=== PATIENT | male | born 1990 | race Caucasian/White ===

== ENCOUNTER 2018-07-08 02:58 | Emergency (ER) | payer SELFPAY ==
[2018-07-08] MEDS ORDERED: Proparacaine 0.5% Ophth Soln 15 ML Bottle EYEBOTH STA (03:05)
--- NOTE | 2018-07-08 03:34 | EDM.PDOC ---
ED HPI GENERAL MEDICAL PROBLEM - General Chief Complaint: Eye Problems Stated Complaint: ISSUE WITH BOTH EYES Time Seen by Provider: 07/08/18 03:07 - History of Present Illness INITIAL COMMENTS - FREE TEXT/NARRATIVE: HISTORY AND PHYSICAL: History of present illness: The patient is a healthy 27-year-old male who is up-to-date on his tetanus shot and does not wear glasses or contact lenses but presents with diffuse bilateral eye pain redness and irritation that started and woke him from sleep just prior to coming into the ED. The patient states that he has a new job welding and he was wearing safety glasses today but at the end of his work he was doing some cleanup and other people welding around him and he is concerning might of been exposed. The patient states that he went home and had a normal evening and had no complaints of eye pain and then right before going to bed he thought that his eyes were a little bit itchy and felt irritated but he did not notice any redness. He went to sleep and woke up suddenly with bilateral eye pain and discomfort and notices eyes were very red bilaterally. He has no systemic complaints and has no fevers chills nausea or vomiting and no headache. He noticed that his eyes are tearing but there has not been any cloudy drainage or crusting. He says both eyes are painful and he does not have a foreign body sensation and he doesn't feel like his vision is blurred is more just discomforting. He also says that light bothers his eyes Review of systems: As per history of present illness and below otherwise all systems reviewed and negative. Past medical history: As per history of present illness and as reviewed below otherwise noncontributory. Surgical history: As per history of present illness and as reviewed below otherwise noncontributory. Social history: No reported history of drug or alcohol abuse. Family history: As per history of present illness and as reviewed below otherwise noncontributory. Physical exam: General: Well-developed well-nourished man is nontoxic and vital signs are tacky. HEENT: Atraumatic, normocephalic, pupils reactive, EOMs are intact and there is no soft tissue swelling of the eyelids or periorbital areas, there is no cervical adenopathy or nuchal rigidity, the sclera are injected bilaterally but no specific delineated ciliary flush is appreciated, negative for conjunctival pallor or scleral icterus, mucous membranes moist, throat clear, neck supple, nontender, trachea midline. Please see below for fluoroscein exam Lungs: Clear to auscultation, breath sounds equal bilaterally, chest nontender. Heart: S1S2, regular rate and rhythm no overt murmurs Abdomen: Soft, nondistended, nontender. NABS Pelvis: Deferred Genitourinary: Deferred. Rectal: Deferred. Extremities: Atraumatic, negative for cords or calf pain. Neurovascular unremarkable. Neuro: Awake, alert, oriented. Cranial nerves II through XII unremarkable. Cerebellum unremarkable. Motor and sensory unremarkable throughout. Exam nonfocal. Diagnostics: Visual acuity was 20/25 in each eye as well as together Fluoroscein stain was performed after proparacaine instilled in bilateral eyes. No foreign bodies were appreciated under the lids or on standing exam. No discrete area of corneal abrasion or uptake was noted. There was a diffuse uptake pattern seen which is more prominent on the right eye. Fundi were difficult to see due to the patient's photophobia. Patient tolerated procedure well and fluoroscein was irrigated out Therapeutics: Proparacaine erythromycin ointment 0327: Case was discussed with Dr. Riley her field ironworker who is willing to see the patient tomorrow if he so having continued pain but thinks that if this was a Skimmer's injury will likely be healed by tomorrow. He advises giving the patient some antibiotic ointment for comfort measures and avoiding bright lights and using [id number] pain meds. I will give the patient Dr. 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 bilateral eye Pain Score (Numeric/FACES): 8 - Related Data Allergies Allergy/AdvReac Type Severity Reaction Status Date / Time No Known Allergies Allergy Verified 07/08/18 03:05 Home Meds: Home Meds . [No Known Home Meds] 07/08/18 [History] Past Medical History - Past Health History Medical/Surgical History: Denies Medical/Surgical History HEENT History: Reports: None Cardiovascular History: Reports: None Respiratory History: Reports: None Gastrointestinal History: Reports: None Genitourinary History: Reports: None Musculoskeletal History: Reports: None Neurological History: Reports: None Psychiatric History: Reports: None Endocrine/Metabolic History: Reports: None Hematologic History: Reports: None Dermatologic History: Reports: None - Infectious Disease History Infectious Disease History: Reports: None - Past Surgical History Cardiovascular Surgical History: Reports: None Respiratory Surgical History: Reports: None Male Surgical History: Reports: None Social & Family History - Family History Family Medical History: Noncontributory - Tobacco Use Smoking Status *Q: Current Every Day Smoker Years of Tobacco use: 5 Packs/Tins Daily: 1 - Recreational Drug Use Recreational Drug Use: No ED ROS GENERAL - Review of Systems Review Of Systems: ROS reveals no pertinent complaints other than HPI. ED EXAM GENERAL W FULL EYE - Physical Exam Exam: See Below (See dictation) Course - Vital Signs Last Recorded V/S: Last Vital Signs Temp 36.4 C 07/08/18 03:05 Pulse 85 07/08/18 03:05 Resp 18 07/08/18 03:05 BP 159/63 H 07/08/18 03:05 Pulse Ox 95 07/08/18 03:05 - Orders/Labs/Meds Orders: Active Orders 24 hr Category Date Time Status Communication Order [RC] STAT Care 07/08/18 03:08 Ordered Meds: Medications Discontinued Medications Generic Name Dose Route Start Last Admin Trade Name Freq PRN Reason Stop Dose Admin Proparacaine HCl 1 ml 07/08/18 03:05 07/08/18 03:11 Proparacaine 0.5% Ophth Soln EYEBOTH 07/08/18 03:06 2 drop NOW STA Administration Departure - Departure Time of Disposition: 03:35 Disposition: Home, Self-Care 01 Condition: Good Clinical Impression: Pain of both eyes, Welders' keratitis of both eyes - Discharge Information Additional Instructions: The following information is given to patients seen in the emergency department who are being discharged to home. This information is to outline your options for follow-up care. We provide all patients seen in our emergency department with a follow-up referral. The need for follow-up, as well as the timing and circumstances, are variable depending upon the specifics of your emergency department visit. If you don't have a primary care physician on staff, we will provide you with a referral. We always advise you to contact your personal physician following an emergency department visit to inform them of the circumstance of the visit and for follow-up with them and/or the need for any referrals to a consulting specialist. The emergency department will also refer you to a specialist when appropriate. This referral assures that you have the opportunity for followup care with a specialist. All of these measure are taken in an effort to provide you with optimal care, which includes your followup. Under all circumstances we always encourage you to contact your private physician who remains a resource for coordinating your care. When calling for followup care, please make the office aware that this follow-up is from your recent emergency room visit. If for any reason you are refused follow-up, please contact the [facility] emergency department at and ask to speak to the emergency department charge nurse. [facility] [address] [place] [address] Please use the ointment your given here in the ED every 4-6 hours as shown by nursing to bilateral eyes and do not drive a car until you are followed up. You may follow up with Dr. Riley or one of his associates at the clinic tomorrow and please call for follow-up appointment--the clinic is only open from 8-[address] Riley was made aware of you and tonight's events. He did feel that your eyes are improving a gelatinous really need to follow-up with Dr. Riley tomorrow and can do that at your leisure. Return to ER as needed and as discussed. - My Orders Last 24 Hours: My Active Orders 07/08/18 03:08 Communication Order [RC] STAT - Assessment/Plan Last 24 Hours: My Active Orders 07/08/18 03:08 Communication Order [RC] STAT
[2018-07-08] MEDS ORDERED: Erythromycin Base 0.5% Ophth Oint 1 GM Tube ONE (03:35)
[2018-07-08] MEDS ORDERED: Erythromycin Base 0.5% Ophth Oint 1 GM Tube EYEBOTH ONE (03:44)
== END 2018-07-08 03:50 | disposition home or self-care (01) ==
LOC: MW.ED 02:58
DX: H16.133 Photokeratitis, bilateral (principal); F17.210 Nicotine dependence, cigarettes, uncomplicated; W89.8XXA Exposure to other man-made visible and ultraviolet light, initial encounter; Y99.0 Civilian activity done for income or pay
CPT/HCPCS: 99283

== ENCOUNTER 2019-02-25 15:26 | Emergency (ER) | payer SELFPAY ==
[2019-02-25] MEDS ORDERED: Tetracaine 1% 10 MG/ML 2 ML SDV STA (15:45)
[2019-02-25] MEDS ORDERED: Tetracaine HCl/PF 0.5% 4 ML Bottle ONE (15:50)
[2019-02-25] MEDS ORDERED: Tetracaine HCl/PF 0.5% 4 ML Bottle EYELF ONE (15:51)
--- NOTE | 2019-02-25 16:24 | EDM.PDOC ---
ED HPI GENERAL MEDICAL PROBLEM - General Chief Complaint: Eye Problems Stated Complaint: EYE INJURY Time Seen by Provider: 02/25/19 15:43 Source of Information: Reports: Patient History Limitations: Reports: No Limitations - History of Present Illness INITIAL COMMENTS - FREE TEXT/NARRATIVE: HISTORY AND PHYSICAL: History of present illness: Patient is a 28-year-old male who presents to the ED today with concern for metal to his left eye. Patient states he was working with typing yesterday when he fell he kicked an eyelash in his eye. Patient states he's been able to see out of his eye that there is a piece of metal. Patient states he is up-to-date on his vaccinations and had a recent T Vaccine. Patient denies any blurry vision or loss of vision. Patient denies fever, chills, chest pain, shortness of breath, or cough. Denies headache, neck stiff ness, change in vision, syncope, or near syncope. Denies nausea, vomiting, abdominal pain, diarrhea, constipation, or dysuria. Has not noted any blood in urine or stool. Patient has been eating and drinking appropriately. Review of systems: As per history of present illness and below otherwise all systems reviewed and negative. Past medical history: As per history of present illness and as reviewed below otherwise noncontributory. Surgical history: As per history of present illness and as reviewed below otherwise noncontributory. Social history: See social history for further information Family history: As per history of present illness and as reviewed below otherwise noncontributory. Physical exam: General: Patient is alert, oriented, and in no acute distress. Patient sitting comfortably on exam table. HEENT: Atraumatic, normocephalic, pupils equal and reactive bilaterally, negative for conjunctival pallor or scleral icterus, mucous membranes moist, TMs normal bilaterally, throat clear, neck supple, nontender, trachea midline. No drooling or trismus noted. No meningeal signs. No hot potato voice noted. There is a pinpoint foreign body on the left cornea. Left eye is tearful with watery drainage and sclera is injected. I did fluorescein stain the eye and did appreciate a small corneal abrasion over top of the foreign body. I was unable to remove the foreign body due to the healing process. Lungs: Clear to auscultation, breath sounds equal bilaterally, chest nontender. Heart: S1S2, regular rate and rhythm without overt murmur Abdomen: Soft, nondistended, nontender. Negative for masses or hepatosplenomegaly. Negative for costovertebral tenderness. Pelvis: Stable nontender. Genitourinary: Deferred. Rectal: Deferred. Skin: Intact, warm, dry. No lesions or rashes noted. Extremities: Atraumatic, negative for cords or calf pain. Neurovascular unremarkable. Neuro: Awake, alert, oriented. Cranial nerves II through XII unremarkable. Cerebellum unremarkable. Motor and sensory unremarkable throughout. Exam nonfocal. Notes: Consult to Dr. Gallego, ophthalmology on-call, who is willing to see patient in his office immediately following the ED are discharge. Per consult, Dr. Fu will take care of any needed antibiotics or further care and disposition per patient. Discussed this with patient and he is agreeable to plan of care. Voices understanding and is agreeable to plan of care. Denies any further questions or concerns at this time. Diagnostics: First denies same Therapeutics: Tetracaine ophthalmic Prescription: None Impression: Foreign body to left eye with corneal abrasion Plan: 1. Discharge to Dr. Gallego, agency recruiter. Meet immediately following ER at door 2. 2. Return to ED as needed and as discussed. Definitive disposition and diagnosis as appropriate pending reevaluation and review of above. Left Eye Pain Score (Numeric/FACES): 1 - Related Data Allergies Allergy/AdvReac Type Severity Reaction Status Date / Time No Known Allergies Allergy Verified 02/25/19 15:40 Home Meds: Home Meds . [No Known Home Meds] 07/08/18 [History] Past Medical History - Past Health History Medical/Surgical History: Denies Medical/Surgical History HEENT History: Reports: None Cardiovascular History: Reports: None Respiratory History: Reports: None Gastrointestinal History: Reports: None Genitourinary History: Reports: None Musculoskeletal History: Reports: None Neurological History: Reports: None Psychiatric History: Reports: None Endocrine/Metabolic History: Reports: None Hematologic History: Reports: None Dermatologic History: Reports: None - Infectious Disease History Infectious Disease History: Reports: None - Past Surgical History Cardiovascular Surgical History: Reports: None Respiratory Surgical History: Reports: None Male Surgical History: Reports: None Social & Family History - Family History Family Medical History: Noncontributory - Tobacco Use Smoking Status *Q: Current Every Day Smoker Years of Tobacco use: 10 Packs/Tins Daily: 0.5 - Caffeine Use Caffeine Use: Reports: Coffee - Recreational Drug Use Recreational Drug Use: No ED ROS GENERAL - Review of Systems Review Of Systems: ROS reveals no pertinent complaints other than HPI. ED EXAM GENERAL W FULL EYE - Physical Exam Exam: See Below (See dictation) Course - Vital Signs Last Recorded V/S: Last Vital Signs Temp 35.6 C 02/25/19 15:40 Pulse 76 02/25/19 15:40 Resp 16 02/25/19 15:40 BP 139/81 02/25/19 15:40 Pulse Ox 97 02/25/19 15:40 - Orders/Labs/Meds Meds: Medications Discontinued Medications Generic Name Dose Route Start Last Admin Trade Name Osiel PRN Reason Stop Dose Admin Tetracaine 1 mg 02/25/19 15:45 Pontocaine 1% .XX 02/25/19 15:46 NOW STA Tetracaine HCl 1 ml 02/25/19 15:51 Tetracaine 0.5% Steri-Unit Yvonne EYELF 02/25/19 15:52 ASDIRECTED ONE Tetracaine HCl Confirm 02/25/19 15:50 Tetracaine 0.5% Steri-Unit Yvonne Administered 02/25/19 15:51 Dose 4 ml .ROUTE .STK-MED ONE Departure - Departure Time of Disposition: 16:28 Disposition: DC/Tfer to Other 70 Clinical Impression: Eye foreign body Qualifiers: Encounter type: initial encounter Laterality: left Qualified Code(s): T15.92XA - Foreign body on external eye, part unspecified, left eye, initial encounter Corneal abrasion Qualifiers: Encounter type: initial encounter Laterality: left Qualified Code(s): S05.02XA - Injury of conjunctiva and corneal abrasion without foreign body, left eye, initial encounter - Discharge Information Instructions: Corneal Abrasion, [id number], Eye Foreign Body, [id number] Referrals: PCP,Unknown [Primary Care Provider] - Additional Instructions: The following information is given to patients seen in the emergency department who are being discharged to home. This information is to outline your options for follow-up care. We provide all patients seen in our emergency department with a follow-up referral. The need for follow-up, as well as the timing and circumstances, are variable depending upon the specifics of your emergency department visit. If you don't have a primary care physician on staff, we will provide you with a referral. We always advise you to contact your personal physician following an emergency department visit to inform them of the circumstance of the visit and for follow-up with them and/or the need for any referrals to a consulting specialist. The emergency department will also refer you to a specialist when appropriate. This referral assures that you have the opportunity for follow-up care with a specialist. All of these measure are taken in an effort to provide you with optimal care, which includes your follow-up. Under all circumstances we always encourage you to contact your private physician who remains a resource for coordinating your care. When calling for follow-up care, please make the office aware that this follow-up is from your recent emergency room visit. If for any reason you are refused follow-up, please contact the [facility] Emergency Department at and asked to speak to the emergency department charge nurse. [facility] [address] [place] [id number] [place] [address] 1. [address]charge [address]. Gallego, agency recruiter. Meet immediately following ER at door 2. 2. Return to ED as needed and as discussed.
== END 2019-02-25 16:32 | disposition home or self-care (01) ==
LOC: MW.ED 15:26
DX: T15.02XA Foreign body in cornea, left eye, initial encounter (principal); F17.210 Nicotine dependence, cigarettes, uncomplicated
CPT/HCPCS: 99283

== ENCOUNTER 2020-06-30 22:12 | Emergency (ER) | payer SELFPAY ==
[2020-06-30] MEDS ORDERED: Ibuprofen 600 MG Tab PO ONE (22:30)
[2020-06-30] MEDS ORDERED: Sulfamethoxazole/Trimethoprim 800-160 MG Tab PO ONE (22:30)
--- NOTE | 2020-06-30 22:30 | EDM.PDOC ---
ED HPI GENERAL MEDICAL PROBLEM - General Chief Complaint: Genitourinary Problem Stated Complaint: POSSIBLE HERNIA Time Seen by Provider: 06/30/20 22:19 - History of Present Illness INITIAL COMMENTS - FREE TEXT/NARRATIVE: HISTORY AND PHYSICAL: History of present illness: This is a 29-year-old healthy gentleman with no history of hypertension, diabetes, liver, lung, kidney problems who presents the ER today secondary to pain and discomfort to his perineal region x3 weeks. Patient reports discomfort increased today. Patient was concerned that he might have a hernia in that region. Patient denies any recent fevers, shakes, chills, nausea, vomiting, diarrhea, dysuria, frequency, urgency, chest pain, shortness of breath. Review of systems: As per history of present illness and below otherwise all systems reviewed and negative. Past medical history: As per history of present illness and as reviewed below otherwise noncontributory. Surgical history: As per history of present illness and as reviewed below otherwise noncontributory. Social history: No reported history of drug or alcohol abuse. Family history: As per history of present illness and as reviewed below otherwise noncontributory. Physical exam: Constitutional: Patient is oriented to person, place, and time. Appears well- developed and well-nourished. No distress. HEENT: Moist mucous membranes Head: Normocephalic and atraumatic Eyes: Right eye exhibits no discharge. Left eye exhibits no discharge. No scleral icterus Neck: Normal range of motion. No tracheal deviation present. Cardiovascular: Normal rate and regular rhythm. Pulmonary: Effort normal, no respiratory distress. Abdominal: No distention Musculoskeletal: Normal range of motion Neurologic: Alert and oriented to person, place and time. Skin: [place], warm and dry. Psychiatric: Normal mood and affect. Behavior is normal. Judgment and thought content normal. Nursing note and vital signs have been reviewed Patient's ER physical exam is significant for tenderness and swelling to his perineal region with area of induration extending into his scrotal region. This appears to be the consistency of likely cellulitis. Patient has some mild erythema in that region as well. Testes are nontender. Therapeutics: Bactrim DS 2 tablets p.o. every 12 hours x10 days. Ibuprofen to assist with pain. Assessment and plan: 29-year-old who presents ER today with likely folliculitis/cellulitis in the perineal region. This does not appear to extend into the anus or rectum. Patient be started on Bactrim DS instructed to follow-up in 3 to 5 days for reevaluation. Patient will be instructed to utilize warm soaks/compresses to assist with healing. Reassessment at the time of disposition demonstrates that the patient is in no acute distress. The patient has remained stable throughout the entire ED visit and is without objective evidence for acute process requiring urgent intervention or hospitalization. The patient is stable for discharge, counseling is provided as documented above, discussed symptomatic treatment and specific conditions for return. I have spoken with the patient/caregive and discussed todays findings, in addition to providing specific details for the plan of care. Questions are answered and there is agreement with the plan. Definitive disposition and diagnosis as appropriate pending reevaluation and review of above. left testicular area Pain Score (Numeric/FACES): 5 - Related Data Allergies Allergy/AdvReac Type Severity Reaction Status Date / Time No Known Allergies Allergy Verified 06/30/20 22:22 Home Meds: Home Meds Ibuprofen 600 mg PO Q6HR PRN #30 tablet 06/30/20 [Rx] Sulfamethoxazole/Trimethoprim [Bactrim Ds Tablet] 2 each PO BID #40 tablet 06/30/20 [Rx] Past Medical History - Past Health History Medical/Surgical History: Denies Medical/Surgical History HEENT History: Reports: None Cardiovascular History: Reports: None Respiratory History: Reports: None Gastrointestinal History: Reports: None Genitourinary History: Reports: None Musculoskeletal History: Reports: None Neurological History: Reports: None Psychiatric History: Reports: None Endocrine/Metabolic History: Reports: None Hematologic History: Reports: None Dermatologic History: Reports: None - Infectious Disease History Infectious Disease History: Reports: None - Past Surgical History Cardiovascular Surgical History: Reports: None Respiratory Surgical History: Reports: None Male Surgical History: Reports: None Social & Family History - Family History Family Medical History: Noncontributory - Caffeine Use Caffeine Use: Reports: Coffee ED ROS GENERAL - Review of Systems Review Of Systems: Comprehensive ROS is negative, except as noted in HPI. ED EXAM, GENERAL - Physical Exam Exam: See Below Course - Vital Signs Last Recorded V/S: Last Vital Signs Temp 96.8 F L 06/30/20 22:52 Pulse 76 06/30/20 22:52 Resp 18 06/30/20 22:52 BP 130/70 06/30/20 22:52 Pulse Ox 98 06/30/20 22:52 - Orders/Labs/Meds Meds: Medications Discontinued Medications Generic Name Dose Route Start Last Admin Trade Name Freq PRN Reason Stop Dose Admin Ibuprofen 600 mg 06/30/20 22:30 06/30/20 22:43 Motrin PO 06/30/20 22:31 600 mg ONETIME ONE Administration Trimethoprim/Sulfamethoxazole 2 tab 06/30/20 22:30 06/30/20 22:43 Septra Ds PO 06/30/20 22:31 2 tab ONETIME ONE Administration Departure - Departure Time of Disposition: 22:43 Disposition: Home, Self-Care 01 Condition: Good Clinical Impression: Folliculitis, Cellulitis - Discharge Information Prescriptions: Sulfamethoxazole/Trimethoprim [Bactrim Ds Tablet] 2 each PO BID #40 tablet Ibuprofen 600 mg PO Q6HR PRN #30 tablet PRN Reason: Pain Instructions: Cellulitis, Adult Referrals: PCP,None [Primary Care Provider] - Forms: ED Department Discharge Additional Instructions: You will be first arrived Bactrim DS 2 tablets twice a day for 10 days. You will be prescribed ibuprofen to assist with pain. Please make an appointment to see your family doctor in 2 to 3 days for reevaluation. The following information is given to patients seen in the emergency department who are being discharged to home. This information is to outline your options for follow-up care. We provide all patients seen in our emergency department with a follow-up referral. The need for follow-up, as well as the timing and circumstances, are variable depending upon the specifics of your emergency department visit. If you don't have a primary care physician on staff, we will provide you with a referral. We always advise you to contact your personal physician following an emergency department visit to inform them of the circumstance of the visit and for follow-up with them and/or the need for any referrals to a consulting specialist. The emergency department will also refer you to a specialist when appropriate. This referral assures that you have the opportunity for follow-up care with a specialist. All of these measure are taken in an effort to provide you with optimal care, which includes your follow-up. Under all circumstances we always encourage you to contact your private physician who remains a resource for coordinating your care. When calling for follow-up care, please make the office aware that this follow-up is from your recent emergency room visit. If for any reason you are refused follow-up, please contact the [facility] Emergency Department at and asked to speak to the emergency department charge nurse. Sepsis Event Note (ED) - Evaluation Sepsis Screening Result: No Definite Risk
== END 2020-06-30 22:53 | disposition home or self-care (01) ==
LOC: MW.ED 22:12
DX: L73.9 Follicular disorder, unspecified (principal); L03.315 Cellulitis of perineum
CPT/HCPCS: 99283; A9270

== ENCOUNTER 2020-09-02 20:00 | Emergency (ER) | payer SELFPAY ==
--- NOTE | 2020-09-02 20:46 | EDM.PDOC ---
ED HPI GENERAL MEDICAL PROBLEM - General Chief Complaint: Skin Complaint Stated Complaint: LUMP ON TESTICLE Time Seen by Provider: 09/02/20 20:42 Source of Information: Reports: Patient - History of Present Illness INITIAL COMMENTS - FREE TEXT/NARRATIVE: Patient is a 30-year-old male who presents today for testicular pain. Patient states he had similar pain back in June was at home with a diagnosis of cellulitis on Bactrim. Patient states that today the pain and swelling redness has returned. Patient denies any penile discharge fevers chills abdominal pain. - Related Data Allergies Allergy/AdvReac Type Severity Reaction Status Date / Time No Known Allergies Allergy Verified 06/30/20 22:22 Home Meds: Home Meds Ibuprofen 600 mg PO Q6HR PRN #30 tablet 06/30/20 [Rx] Sulfamethoxazole/Trimethoprim [Bactrim Ds Tablet] 2 each PO BID #40 tablet 06/30/20 [Rx] Doxycycline Hyclate 100 mg PO BID 10 Days #20 tablet. 09/02/20 [Rx] Past Medical History - Past Health History Medical/Surgical History: Denies Medical/Surgical History HEENT History: Reports: None Cardiovascular History: Reports: None Other Cardiovascular History: irregular heartbeart as a child Respiratory History: Reports: None Gastrointestinal History: Reports: None Genitourinary History: Reports: None Musculoskeletal History: Reports: None Other Musculoskeletal History: L knee sx Neurological History: Reports: None Psychiatric History: Reports: None Endocrine/Metabolic History: Reports: None Insulin Pump Model and [employer]: None Hematologic History: Reports: None Immunologic History: Reports: None Oncologic (Cancer) History: Reports: None Dermatologic History: Reports: None - Infectious Disease History Infectious Disease History: Reports: None - Past Surgical History Head Surgeries/Procedures: Reports: None Cardiovascular Surgical History: Reports: None Respiratory Surgical History: Reports: None Male Surgical History: Reports: None Social & Family History - Family History Family Medical History: Noncontributory - Caffeine Use Caffeine Use: Reports: Coffee, Energy Drinks - Recreational Drug Use Recreational Drug Use: No ED ROS GENERAL - Review of Systems Review Of Systems: Comprehensive ROS is negative, except as noted in HPI. : Reports: Pain ED EXAM, SKIN/RASH Exam: See Below Exam Limited By: No Limitations General Appearance: Alert, No Apparent Distress Respiratory/Chest: No Respiratory Distress Cardiovascular: Normal Peripheral Pulses, Regular Rate, Rhythm GI/Abdominal: Normal Bowel Sounds, Soft, Non-Tender (Male) Exam: No Hernia, Scrotum Tenderness (L), Testicular Tenderness (R) Extremities: Normal Inspection Neurological: Alert, Oriented, CN II-XII Intact Psychiatric: Normal Affect Skin: Warm Course - Vital Signs Last Recorded V/S: Last Vital Signs Temp 98.4 F 09/02/20 20:17 Pulse 93 09/02/20 20:17 Resp 18 09/02/20 20:17 BP 143/85 H 09/02/20 20:17 Pulse Ox 96 09/02/20 20:17 - Orders/Labs/Meds Orders: Active Orders 24 hr Category Date Time Status Scrotum and Contents [US] Stat Exams 09/02/20 20:31 Taken Labs: Laboratory Tests 09/02/20 09/02/20 09/02/20 Range/Units 20:25 20:44 20:44 WBC 8.92 (4.0-11.0) K/uL RBC 5.13 (4.50-5.90) M/uL Hgb 15.6 (13.0-17.0) g/dL Hct 46.8 (38.0-50.0) % MCV 91.2 (80.0-98.0) fL MCH 30.4 (27.0-32.0) pg MCHC 33.3 (31.0-37.0) g/dL RDW Std Deviation 42.6 (28.0-62.0) fl RDW Coeff of Noe 13 (11.0-15.0) % Plt Count 326 (150-400) K/uL MPV 10.00 (7.40-12.00) fL Neut % (Auto) 55.8 (48.0-80.0) % Lymph % (Auto) 25.6 (16.0-40.0) % [place] % (Auto) 14.8 (0.0-15.0) % Eos % (Auto) 3.6 (0.0-7.0) % Baso % (Auto) 0.2 (0.0-1.5) % Neut # (Auto) 5.0 (1.4-5.7) K/uL Lymph # (Auto) 2.3 (0.6-2.4) K/uL [place] # (Auto) 1.3 H (0.0-0.8) K/uL Eos # (Auto) 0.3 (0.0-0.7) K/uL Baso # (Auto) 0.0 (0.0-0.1) K/uL Nucleated RBC % 0.0 /100WBC Nucleated RBCs # 0 K/uL Sodium 137 (136-148) mmol/L Potassium 3.9 (3.5-5.1) mmol/L Chloride 102 (98-107) mmol/L Carbon Dioxide 27.5 (21.0-32.0) mmol/L BUN 16 (7.0-18.0) mg/dL Creatinine 1.1 (0.8-1.3) mg/dL Est Cr Clr Drug Dosing 113.13 mL/min Estimated GFR (MDRD) > 60.0 ml/min Glucose 99 (74-106) mg/dL Calcium 9.3 (8.5-10.1) mg/dL Creatine Kinase 103 (26-308) U/L Urine Color YELLOW Urine Appearance HAZY Urine pH 5.0 (5.0-8.0) Ur Specific [place] >= 1.030 (1.001-1.035) Urine Protein 30 H (NEGATIVE) mg/dL Urine Glucose (UA) NEGATIVE (NEGATIVE) mg/dL Urine Ketones TRACE H (NEGATIVE) mg/dL Urine Occult Blood NEGATIVE (NEGATIVE) Urine Nitrite POSITIVE H (NEGATIVE) Urine Bilirubin MODERATE H (NEGATIVE) Urine Ictotest NEGATIVE Urine Urobilinogen 1.0 (<2.0) EU/dL Ur Leukocyte Esterase TRACE H (NEGATIVE) Urine RBC 4-8 (0-2/HPF) Urine WBC 0-2 (0-5/HPF) Ur Epithelial Cells RARE (NONE-FEW) Urine Bacteria FEW (NEGATIVE) Urine Mucus MODERATE (NONE-MOD) Meds: Medications Discontinued Medications Generic Name Dose Route Start Last Admin Trade Name Freq PRN Reason Stop Dose Admin Doxycycline Hyclate 100 mg 09/02/20 22:45 Vibramycin PO 09/02/20 22:46 ONETIME ONE Ceftriaxone Sodium 250 mg/ 1 mls @ 1 mls/sec 09/02/20 22:45 Lidocaine HCl IM 09/02/20 22:46 ONETIME ONE Departure - Departure Time of Disposition: 22:56 Disposition: Refer to Observation Clinical Impression: Acute epididymitis - Discharge Information *PRESCRIPTION DRUG MONITORING PROGRAM REVIEWED*: Not Applicable *COPY OF PRESCRIPTION DRUG MONITORING REPORT IN PATIENT STEVEN: Not Applicable Prescriptions: Doxycycline Hyclate 100 mg PO BID 10 Days #20 tablet. Instructions: Epididymitis Referrals: PCP,None [Primary Care Provider] - Forms: ED Department Discharge Additional Instructions: The following information is given to patients seen in the emergency department who are being discharged to home. This information is to outline your options for follow-up care. We provide all patients seen in our emergency department with a follow-up referral. The need for follow-up, as well as the timing and circumstances, are variable depending upon the specifics of your emergency department visit. If you don't have a primary care physician on staff, we will provide you with a referral. We always advise you to contact your personal physician following an emergency department visit to inform them of the circumstance of the visit and for follow-up with them and/or the need for any referrals to a consulting specialist. The emergency department will also refer you to a specialist when appropriate. This referral assures that you have the opportunity for follow-up care with a specialist. All of these measure are taken in an effort to provide you with optimal care, which includes your follow-up. Under all circumstances we always encourage you to contact your private physician who remains a resource for coordinating your care. When calling for follow-up care, please make the office aware that this follow-up is from your recent emergency room visit. If for any reason you are refused follow-up, please contact the [facility] Emergency Department at and asked to speak to the emergency department charge nurse. Take antibiotics as prescribed. If you have any increased testicular swelling redness fever chills please return otherwise follow-up with urology at the number below. [facility] - Urology [address] [place] [id number] Sepsis Event Note (ED) - Evaluation Sepsis Screening Result: No Definite Risk - Focused Exam Vital Signs: Vital Signs Temp Pulse Resp BP Pulse Ox 09/02/20 20:17 98.4 F 93 18 143/85 H 96 - My Orders Last 24 Hours: My Active Orders 09/02/20 20:31 Scrotum and Contents [US] Stat - Assessment/Plan Last 24 Hours: My Active Orders 09/02/20 20:31 Scrotum and Contents [US] Stat Plan: Patient is a male presents today for testicular pain and swelling. Patient has some tenderness to the left testicle with a possible abscess like mass. Will have labs ultrasound and reassess. Patient ultrasound shows possible epididymitis. Patient was given ceftriaxone with doxycycline. Patient will be discharged to follow-up with urology as outpatient. He also mentioned that his is and she has been tested for STDs and are negative. Patient will also be tested for gonorrhea and chlamydia.
[2020-09-02 21:12] LABS: BLOOD UREA NITROGEN,BUN 16 mg/dL (7.0-18.0); CARBON DIOXIDE,CO2 27.5 mmol/L (21.0-32.0); CHLORIDE,CL 102 mmol/L (98-107); GLUCOSE RANDOM 99 mg/dL (74-106); POTASSIUM,K 3.9 mmol/L (3.5-5.1); SODIUM,NA 137 mmol/L (136-148)
[2020-09-02] MEDS ORDERED: Doxycycline 100 MG Cap PO ONE (22:45)
[2020-09-02] MEDS ORDERED: cefTRIAXone 250 MG in Lidocaine 1% 1 ML IM ONE (22:45)
[2020-09-04 11:07] LABS: C.TRACHOMATIS BY TMA Negative (Negative); N.GONORRHOEAE BY TMA Negative (Negative)
--- NOTE | 2020-09-04 15:42 | US ---
INDICATION: Left scrotal pain for several months. TECHNIQUE: Ultrasound scrotum and contents. Real-time lucero scale sonographic images with spectral and color Doppler imaging of the testicles were obtained. COMPARISON: None FINDINGS: Right testis: 5 x 2.4 x 4.3 cm. The right testis is appearance and echotexture. Normal arterial and venous blood flow seen in the right testis. Left testis: 4.6 x 2.7 x 3.9 cm. The left testis is appearance and echotexture. Normal arterial and venous blood flow seen in the left testis. Epididymis: The left epididymis is mildly enlarged compared to the right but has no increased vascularity seen. Soft tissue: No significant hydrocele or varicocele noted. No adenopathy is seen. IMPRESSION: 1. The left epididymis is mildly enlarged compared to the right but has no increased vascularity seen. Findings may be due to epididymitis. Dictated by Glenn Jimenes MD @ 09/02/2020 10:27:57 PM Dictated by: Glenn Jimenes MD @ 09/02/2020 22:28:01 (Electronically Signed) DEO
== END 2020-09-02 23:30 | disposition home or self-care (01) ==
LOC: MW.ED 20:00
DX: N45.1 Epididymitis (principal)
CPT/HCPCS: 36415; 76870; 80048; 81001; 82550; 85025; 87491; 87591; 93976; 96372; 99284; A9270; J0696; J2001

== ENCOUNTER 2020-12-27 18:08 | Emergency (ER) | payer OTHER ==
--- NOTE | 2020-12-27 21:04 | US ---
INDICATION: Pain posterior to the scrotum TECHNIQUE: Ultrasound of the scrotum and contents. Sonographic lucero-scale images were obtained with spectral and color Doppler waveform and spectral waveform analysis of the testicles. COMPARISON: 09/02/2020 FINDINGS: Right testicle: 5.6 x 2.7 x 3.8 cm. Normal echotexture. No masses. No suspicious calcifications. Normal arterial and venous blood flow using Doppler and spectral waveform analysis. Left testicle: 5.6 x 2.4 x 4.0 cm. Normal echotexture. No masses. A few apparent faint microcalcifications versus artifact. Normal arterial and venous blood flow using Doppler and spectral waveform analysis. Epididymis: Unremarkable bilaterally. Unremarkable blood flow. Other: No significant hydrocele. A 3.4 x 1.2 x 1.1 cm complex ovoid hypoechoic structure in the perineal soft tissues posterior to the scrotum, containing irregular curvilinear and ill-defined internal echogenic areas, with mildly hypoechoic soft tissue periphery, demonstrating prominent peripheral doppler flow. No discernible Doppler flow within the complex hypoechoic central component. IMPRESSION: A 3.4 cm complex hypoechoic lesion in the posterior perineum, demonstrating prominent peripheral Doppler flow. This could represent an abscess, an infected hematoma or a necrotic mass. Correlate clinically and follow-up, as indicated. Bilateral testicular Doppler flow demonstrated. Few apparent left testicular microcalcifications. Consider follow-up. Dictated by Truong Gomez MD @ Dec 27 2020 8:49PM Signed by Dr. Truong Gomez @ Dec 27 2020 9:02PM
[2020-12-27 21:25] LABS: BLOOD UREA NITROGEN,BUN 18 mg/dL (7.0-18.0); CARBON DIOXIDE,CO2 22.1 mmol/L (21.0-32.0); CHLORIDE,CL 103 mmol/L (98-107); GLUCOSE RANDOM 99 mg/dL (74-106); SODIUM,NA 141 mmol/L (136-148)
[2020-12-27] MEDS ORDERED: Iopamidol 755 MG/ML 500 ML Multipack Bottle IVPUSH STA (21:58)
--- NOTE | 2020-12-27 22:15 | CT ---
INDICATION: Pain TECHNIQUE: CT pelvis with 100 cc Isovue 370 intravenous contrast. COMPARISON: Scrotal ultrasound 12/27/2020 FINDINGS: Bones: Alignment is normal. No sign of acute fracture. No suspicious bony lesions. Joints: Unremarkable. Soft tissues: Some nonspecific edema is present at the posterior aspect of the left hemiscrotum extending into the perineum. However, posterior to this there is a thin linear area of hypodense material with peripheral rim enhancement. This measures 4.2 centimeters anteroposterior, 0.6 centimeters transverse and 1.0 centimeters craniocaudal (series 203, image 85; series 201, image 97). Other: No dilated loops of large or small intestine within the pelvis. Unremarkable appendix. Bladder and prostate unremarkable. Subcentimeter inguinal lymph nodes. IMPRESSION: Edema at the posterior aspect of the left hemiscrotum with a thin hypodense rim enhancing collection at the posterior perineum near the skin surface measuring 4.2 x 0.6 x 1.0 centimeters suspicious for an abscess in this clinical setting. Please note that all CT scans at this facility use dose modulation, iterative reconstruction, and/or weight-based dosing when appropriate to reduce radiation dose to as low as reasonably achievable. Dictated by Ezio Flores MD @ Dec 27 2020 10:06PM Signed by Dr. Ezio Flores @ Dec 27 2020 10:13PM
[2020-12-27] MEDS ORDERED: Lidocaine 5% Oint 35.44 GM Tube TOP ONE ×3 (22:47→23:00)
[2020-12-28] MEDS ORDERED: Lidocaine 1% with EPINEPHrine 1:100,000 20 ML MDV ONE (00:11)
[2020-12-28] MEDS ORDERED: Lidocaine 1% with EPINEPHrine 1:100,000 20 ML MDV INJECT ONE (00:15)
[2020-12-28] MEDS ORDERED: Ketorolac 15 MG/ML SDV IM ONE (00:26)
[2020-12-28] MEDS ORDERED: Sulfamethoxazole/Trimethoprim 800-160 MG Tab PO ONE (00:27)
--- NOTE | 2020-12-28 00:46 | EDM.PDOC ---
ED HPI GENERAL MEDICAL PROBLEM - General Stated Complaint: GROIN PAIN Time Seen by Provider: 12/27/20 19:20 - History of Present Illness INITIAL COMMENTS - FREE TEXT/NARRATIVE: CHIEF COMPLAINT(S): Bubble and swelling near testicles HISTORY OF PRESENT ILLNESS: This is a 30-year-old man without any significant past medical history who comes to the emergency department with a chief complaint of bubble and swelling near testicles. The patient states that he has been to the emergency department multiple times in his primary care physician for continued pain on the left side of his testicles. He states that it has not gotten any better and was recently started on a new antibiotic. He states that he is concerned because there is a bubble and there is an area of swelling that seems to shift around. He states it is now located on his taint and it is pretty severe and tender. He denies any fevers, chills, pain with defecation, dysuria, hematuria, penile discharge. He states that he does have some mild left testicular pain but denies any testicular swelling. He states that he has tried the antibiotics and was told to follow-up with urology today however urology can only see him in 2 months. He denies any other symptoms. He denies any history of STDs. Denies any history of prostatitis. He is sexually active with one partner who is his who is present in the room with him. REVIEW OF SYSTEMS: Constitutional: Denies fever, chills. Eyes: Denies eye pain Ears, Nose, Mouth, & Throat: Denies earache Cardiovascular: Denies chest pain Respiratory: Denies shortness of breath Gastrointestinal: Denies Nausea, vomiting, diarrhea, hematochezia. Genitourinary: Positive for left testicular pain. Denies hematuria, dysuria, penile discharge, testicular swelling Skin: Positive for a tender swollen area near the scrotum. MSK: Denies joint pain Neurological: Denies blurred vision Psychiatric: Denies depression PAST MEDICAL HISTORY: As per history of present illness and as reviewed below otherwise noncontributory. SURGICAL HISTORY: As per history of present illness and as reviewed below otherwise noncontributory. SOCIAL HISTORY: As per history of present illness and as reviewed below otherwise noncontributory. FAMILY HISTORY: As per history of present illness and as reviewed below otherwise noncontributory. EXAMINATION OF ORGAN SYSTEMS/BODY AREAS: Constitutional: Blood pressure is 127/80, heart rate 100, respiratory rate 20 with an oxygen saturation 96% on room air. Temperature 36.9 General: Overall well-appearing man who is in no acute distress. Psychiatric: Appropriate mood and affect. Eyes: No scleral icterus or conjunctival erythema ENMT: Moist mucous membranes. No pharyngeal erythema Cardiovascular: Regular, rate, and rhythm. No gallops, murmurs, or rubs. Bilateral upper extremity pulses symmetric and intact. No peripheral edema. No JVD. Respiratory: Lungs clear to auscultation bilaterally. No wheezes, rales, or rhonchi. Gastrointestinal: Soft, non-tender, non-distended. Normoactive bowel sounds rectal examination was performed. There was no prostate tenderness. There was no masses or lumps. Genitourinary: No suprapubic tenderness the patient has normal male external genitalia. Bilateral testes are distended. There is no obvious swelling or redness to the testicles. There is some mild tenderness on the scrotum of the left side near the base of the scrotum. There is positive cremasteric reflex. There is no evidence of inguinal hernia. No penile discharge noted. Musculoskeletal: Normal range of motion. Skin: There is some area on the perineum which extends near the scrotum which is tender, mildly erythematous with some fluctuance and induration. This does not extend near the rectum. There is no inguinal lymphadenopathy. Neurological: Alert, GCS 15 MEDICAL DECISION MAKING AND COURSE IN THE ED WITH INTERPRETATION/REVIEW OF DIAGNOSTIC STUDIES: This is a 30-year-old man without any reported past medical history who comes to the emergency department with continued tenderness on the left scrotum with a normal male external genitalia examination who has evidence of possible perineal abscess with mild overlying cellulitis. The patient states that when we are not touching it there is no pain therefore he does not want any pain medications at this time. Given the tenderness on the testicles we will obtain a repeat ultrasound. Will obtain labs including CBC, BMP, and urinalysis. I did review the patient's chart and he was seen on 06/30/2020 and was diagnosed with possible scrotal cellulitis and was discharged with Bactrim at that time. He was again seen in August 2020 with testicular pain. At that time a scrotal ultrasound was performed which did reveal left epididymitis. In addition at that time the patient had a urinalysis showing positive nitrites, leukocyte esterase with bacteria. Gonorrhea and Chlamydia were negative at that time. The patient was given STD treatment and discharged with epididymitis. Given the prior results and the urinalysis it is uncommon for a male to have E. coli cystitis and urethritis. I did discuss this with the patient. With present in room they did admit to anal intercourse. I do believe this is the cause of the patient's prior urinary tract infection. The radiological images were viewed by myself along with reading the report from the radiologist. Scrotal ultrasound does not reveal any decreased Doppler flow to suggest testicular torsion. There is no evidence of epididymitis or orchitis. There was a 3.4 cm complex hypoechoic lesion in the posterior perineum which could represent an abscess, infected hematoma or necrotic mass. After ultrasound I did discuss with patient at this time that there is possibly an abscess however I wanted to obtain a CT pelvis to evaluate the extent of this abscess. I discussed that this may need drainage by general surgery or urology. He was amenable to this plan. The radiological images were viewed by myself along with reading the report from the radiologist. Pelvic CT reveals edema at the posterior aspect of the left hemiscrotum with a thin hypodense rim-enhancing collection at the posterior perineum near the skin surface measuring 4.2 x 0.6 x 1 cm suspicious for abscess. After imaging I did contact Dr. Negron. He did recommend incision and drainage and follow-up in his clinic. I did discuss results with the patient and he was amenable to incision and drainage at this time. We did place 5% lidocaine cream for anesthetic relief prior to incision and drainage and additional injectable lidocaine. Incision and drainage was performed by myself. The perineum area was prepped with povidone and the skin was locally anesthetized with 1% lidocaine with epinephrine. An incision was made with an 11 blade. Purulent material was removed. A dressing was placed. After incision and drainage I did discuss with the patient that I would like to put him with Toradol given that it would likely be painful after the lidocaine wears off. I discussed at this time that he should keep the area clean and use pads for the drainage. I discussed that I be providing him with Bactrim to be used twice a day for the next week. I discussed with him that he should do sitz bath twice a day and follow-up with general surgery within 1 week. I discussed strict return precautions. The patient was amenable to discharge at this time and had no further questions DISPOSITION: The patient was discharged home in stable condition. The patient will follow up with follow-up with general surgery within 1 week CONDITION: Fair PROCEDURES: Incision and drainage FINAL IMPRESSION(S)/DIAGNOSES: 1. Acute perineal abscess status post incision and drainage Nabil Santillan M.D. testicles Pain Score (Numeric/FACES): 7 - Related Data Allergies Allergy/AdvReac Type Severity Reaction Status Date / Time No Known Allergies Allergy Verified 12/27/20 19:18 Home Meds: Home Meds Ibuprofen 600 mg PO Q6HR PRN #30 tablet 06/30/20 [Rx] Levofloxacin 500 mg PO DAILY 12/27/20 [History] Sulfamethoxazole/Trimethoprim [Bactrim Ds Tablet] 1 each PO BID #14 tablet 12/28/20 [Rx] Past Medical History - Past Health History Medical/Surgical History: Denies Medical/Surgical History HEENT History: Reports: None Cardiovascular History: Reports: None Other Cardiovascular History: irregular heartbeart as a child Respiratory History: Reports: None Gastrointestinal History: Reports: None Genitourinary History: Reports: None Musculoskeletal History: Reports: None Other Musculoskeletal History: L knee sx Neurological History: Reports: None Psychiatric History: Reports: None Endocrine/Metabolic History: Reports: None Insulin Pump Model and Information Technology Advisor: None Hematologic History: Reports: None Immunologic History: Reports: None Oncologic (Cancer) History: Reports: None Dermatologic History: Reports: None - Infectious Disease History Infectious Disease History: Reports: None - Past Surgical History Head Surgeries/Procedures: Reports: None Cardiovascular Surgical History: Reports: None Respiratory Surgical History: Reports: None Male Surgical History: Reports: None Musculoskeletal Surgical History: Reports: Other (See Below) Other Musculoskeletal Surgeries/Procedures:: Knee surgery Social & Family History - Family History Family Medical History: No Pertinent Family History - Tobacco Use Tobacco Use Status *Q: Current Every Day Tobacco User Years of Tobacco use: 10 Packs/Tins Daily: 1 - Caffeine Use Caffeine Use: Reports: Coffee, Energy Drinks, Soda - Recreational Drug Use Recreational Drug Use: No ED ROS GENERAL - Review of Systems Review Of Systems: See Below ED EXAM, SKIN/RASH Exam: See Below Course - Vital Signs Last Recorded V/S: Last Vital Signs Temp 36.9 C 12/27/20 19:19 Pulse 74 12/28/20 01:08 Resp 18 12/28/20 01:08 BP 115/59 L 12/28/20 01:08 Pulse Ox 95 12/28/20 01:08 - Orders/Labs/Meds Orders: Active Orders 24 hr Category Date Time Status Scrotal Duplex Ltd [US] Routine Exams 12/27/20 19:45 Taken CULTURE WOUND [RM] Stat Lab 12/28/20 00:40 Received Labs: Laboratory Tests 12/27/20 12/27/20 12/27/20 Range/Units 19:27 21:00 21:00 WBC 14.80 H (4.0-11.0) K/uL RBC 4.99 (4.50-5.90) M/uL Hgb 15.4 (13.0-17.0) g/dL Hct 45.1 (38.0-50.0) % MCV 90.4 (80.0-98.0) fL MCH 30.9 (27.0-32.0) pg MCHC 34.1 (31.0-37.0) g/dL RDW Std Deviation 42.8 (28.0-62.0) fl RDW Coeff of Noe 13 (11.0-15.0) % Plt Count 363 (150-400) K/uL MPV 9.90 (7.40-12.00) fL Neut % (Auto) 63.9 (48.0-80.0) % Lymph % (Auto) 20.4 (16.0-40.0) % [place] % (Auto) 10.3 (0.0-15.0) % Eos % (Auto) 5.1 (0.0-7.0) % Baso % (Auto) 0.3 (0.0-1.5) % Neut # (Auto) 9.5 H (1.4-5.7) K/uL Lymph # (Auto) 3.0 H (0.6-2.4) K/uL [place] # (Auto) 1.5 H (0.0-0.8) K/uL Eos # (Auto) 0.8 H (0.0-0.7) K/uL Baso # (Auto) 0.1 (0.0-0.1) K/uL Nucleated RBC % 0.0 /100WBC Nucleated RBCs # 0 K/uL Sodium 141 (136-148) mmol/L Potassium 4.0 (3.5-5.1) mmol/L Chloride 103 (98-107) mmol/L Carbon Dioxide 22.1 (21.0-32.0) mmol/L BUN 18 (7.0-18.0) mg/dL Creatinine 0.9 (0.8-1.3) mg/dL Est Cr Clr Drug Dosing 138.27 mL/min Estimated GFR (MDRD) > 60.0 ml/min Glucose 99 (74-106) mg/dL Calcium 8.9 (8.5-10.1) mg/dL Urine Color YELLOW Urine Appearance SLT CLOUDY Urine pH 5.5 (5.0-8.0) Ur Specific [place] >= 1.030 (1.001-1.035) Urine Protein NEGATIVE (NEGATIVE) mg/dL Urine Glucose (UA) NEGATIVE (NEGATIVE) mg/dL Urine Ketones TRACE H (NEGATIVE) mg/dL Urine Occult Blood NEGATIVE (NEGATIVE) Urine Nitrite NEGATIVE (NEGATIVE) Urine Bilirubin SMALL H (NEGATIVE) Urine Ictotest NEGATIVE Urine Urobilinogen 1.0 (<2.0) EU/dL Ur Leukocyte Esterase NEGATIVE (NEGATIVE) Meds: Medications Discontinued Medications Generic Name Dose Route Start Last Admin Trade Name Freq PRN Reason Stop Dose Admin Iopamidol 100 ml 12/27/20 21:58 12/27/20 21:59 Isovue Multipack-370 (76%) IVPUSH 12/27/20 21:59 100 ml ONETIME STA Administration Ketorolac Tromethamine 15 mg 12/28/20 00:26 12/28/20 00:59 Toradol IM 12/28/20 00:57 Not Given ONETIME ONE Ketorolac Tromethamine 15 mg 12/28/20 00:57 12/28/20 01:00 Toradol IVPUSH 12/28/20 00:58 15 mg ONETIME ONE Administration Lidocaine HCl 1 gm 12/27/20 22:47 12/27/20 23:01 Lidocaine 5% TOP 12/27/20 22:48 1 gm ONETIME ONE Administration Lidocaine HCl 35 gm 12/27/20 23:00 12/27/20 23:02 Lidocaine 5% TOP 12/27/20 23:01 Not Given ONETIME ONE Lidocaine HCl 1 gm 12/27/20 23:00 12/27/20 23:02 Lidocaine 5% TOP 12/27/20 23:01 Not Given ONETIME ONE Lidocaine/Epinephrine Confirm 12/28/20 00:11 12/28/20 00:15 Xylocaine 1% With Epinephrine 1:100,000 Administered 12/28/20 00:12 Not Given Dose 20 ml .ROUTE .STK-MED ONE Lidocaine/Epinephrine 20 ml 12/28/20 00:15 12/28/20 01:07 Xylocaine 1% With Epinephrine 1:100,000 INJECT 12/28/20 00:16 20 ml ONETIME ONE Administration Trimethoprim/Sulfamethoxazole 1 tab 12/28/20 00:27 12/28/20 00:58 Septra Ds PO 12/28/20 00:28 1 tab ONETIME ONE Administration Departure - Departure Time of Disposition: 00:45 Disposition: Home, Self-Care 01 Condition: Fair Clinical Impression: Perineal abscess - Discharge Information *PRESCRIPTION DRUG MONITORING PROGRAM REVIEWED*: No *COPY OF PRESCRIPTION DRUG MONITORING REPORT IN PATIENT STEVEN: No Prescriptions: Sulfamethoxazole/Trimethoprim [Bactrim Ds Tablet] 1 each PO BID #14 tablet Instructions: Skin Abscess, [id number], Pain Medicine Instructions, [id number] Referrals: Eugene Berg PA [Primary Care Provider] - Forms: ED Department Discharge Additional Instructions: Your evaluated today on an emergent basis. At this time we did open up the abscess near your testicles. I do recommend that you use Bactrim twice a day for the next 7 days. It is important to take sitz bath's something 2-3 times a day. Please use Tylenol and Motrin as outlined below. If you have any worsening pain, redness that extends beyond where it was before, fevers, pain while having a bowel movement please return to the emergency department. Otherwise please follow-up with general surgery within 1 week for continued evaluation. Please use: Tylenol 500-1000mg every 6 hours (DO NOT TAKE MORE THAN 4000mg in 1 day) Ibuprofen 400mg every 6 hours (Take with food as it can cause ulcers, GI upset) Example schedule: 8:00 AM (Tylenol 500-1000mg) 11:00 AM (Ibuprofen 400mg) 2:00 PM (Tylenol 500-1000mg) 5:00 PM (Ibuprofen 400mg) [facility] - General Surgery Professional [address], [address] [place] [address] The patient is informed of any results of their evaluation and diagnostic workup and all questions are answered. They are given discharge instructions and return precautions. The patient is stable for discharge. The patient states they understand and agree with the plan and that they will return if their symptoms get worse or if they have any new concerns. The following information is given to patients seen in the emergency department who are being discharged to home. This information is to outline your options for follow-up care. We provide all patients seen in our emergency department with a follow-up referral. The need for follow-up, as well as the timing and circumstances, are variable depending upon the specifics of your emergency department visit. If you don't have a primary care physician on staff, we will provide you with a referral. We always advise you to contact your personal physician following an emergency department visit to inform them of the circumstance of the visit and for follow-up with them and/or the need for any referrals to a consulting specialist. The emergency department will also refer you to a specialist when appropriate. This referral assures that you have the opportunity for follow-up care with a specialist. All of these measure are taken in an effort to provide you with optimal care, which includes your follow-up. Under all circumstances we always encourage you to contact your private physician who remains a resource for coordinating your care. When calling for follow-up care, please make the office aware that this follow-up is from your recent emergency room visit. If for any reason you are refused follow-up, please contact the [facility] Emergency Department at and asked to speak to the emergency department charge nurse. Sepsis Event Note (ED) - Evaluation Sepsis Screening Result: No Definite Risk - Focused Exam Vital Signs: Vital Signs Temp Pulse Resp BP Pulse Ox 12/28/20 01:08 74 18 115/59 L 95 12/27/20 21:35 75 16 107/51 L 98 12/27/20 19:19 36.9 C 100 20 127/80 96 - My Orders Last 24 Hours: My Active Orders 12/27/20 19:45 Scrotal Duplex Ltd [US] Routine 12/28/20 00:40 CULTURE WOUND [RM] Stat - Assessment/Plan Last 24 Hours: My Active Orders 12/27/20 19:45 Scrotal Duplex Ltd [US] Routine 12/28/20 00:40 CULTURE WOUND [RM] Stat
[2020-12-28] MEDS ORDERED: Ketorolac 30 MG/ML SDV IVPUSH ONE (00:57)
--- NOTE | 2020-12-30 10:50 | US ---
EXAM DATE: 12/27/20 PATIENT'S AGE: 30 Patient: MATTEO ESCOTO Facility: [facility] Site . Site : 1990 Study: US-Testicle -12/27/2020 8:28:40 PM Ordering Physician: Cindy Carranza Final Report: INDICATION: Pain posterior to the scrotum TECHNIQUE: Ultrasound of the scrotum and contents. Sonographic lucero-scale images were obtained with spectral and color Doppler waveform and spectral waveform analysis of the testicles. COMPARISON: 09/02/2020 FINDINGS: Right testicle: 5.6 x 2.7 x 3.8 cm. Normal echotexture. No masses. No suspicious calcifications. Normal arterial and venous blood flow using Doppler and spectral waveform analysis. Left testicle: 5.6 x 2.4 x 4.0 cm. Normal echotexture. No masses. A few apparent faint microcalcifications versus artifact. Normal arterial and venous blood flow using Doppler and spectral waveform analysis. Epididymis: Unremarkable bilaterally. Unremarkable blood flow. Other: No significant hydrocele. A 3.4 x 1.2 x 1.1 cm complex ovoid hypoechoic structure in the perineal soft tissues posterior to the scrotum, containing irregular curvilinear and ill-defined internal echogenic areas, with mildly hypoechoic soft tissue periphery, demonstrating prominent peripheral doppler flow. No discernible Doppler flow within the complex hypoechoic central component. IMPRESSION: A 3.4 cm complex hypoechoic lesion in the posterior perineum, demonstrating prominent peripheral Doppler flow. This could represent an abscess, an infected hematoma or a necrotic mass. Correlate clinically and follow-up, as indicated. Bilateral testicular Doppler flow demonstrated. Few apparent left testicular microcalcifications. Consider follow-up. Dictated by Truong Gomez MD @ Dec 27 2020 8:49PM Signed by: Truong Gomez MD @12/27/2020 9:02:53 PM (Electronic Signature) Report Signed by Proxy. [employer]
== END 2020-12-28 01:09 | disposition home or self-care (01) ==
LOC: MW.ED 18:08
DX: L02.215 Cutaneous abscess of perineum (principal); Z72.0 Tobacco use
CPT/HCPCS: 36415; 56405; 72193; 76870; 80048; 81003; 85025; 87070; 93976; 96374; 99284; A9270; J1885; Q9967; 10060; 99283

== ENCOUNTER 2021-01-03 21:31 | Emergency (ER) | payer SELFPAY ==
--- NOTE | 2021-01-03 21:35 | EDM.PDOC ---
ED HPI GENERAL MEDICAL PROBLEM - General Chief Complaint: Lower Extremity Injury/Pain Stated Complaint: RT ANKLE INJURY Time Seen by Provider: 01/03/21 21:32 Source of Information: Reports: Patient History Limitations: Reports: No Limitations - History of Present Illness INITIAL COMMENTS - FREE TEXT/NARRATIVE: 30-year-old male presents for right ankle injury. Patient was at work when he tripped rolling his right ankle. He has since noted pain and swelling in the affected extremity. Denies any other injuries. He notes that he was initially able to walk on the affected extremity but has had pain all day. He is noted that swelling has worsened throughout the day. This evening the swelling and pain have become to the point that he cannot really walk on it. He denies any other injuries. Denies hitting his head or LOC R ankle Pain Score (Numeric/FACES): 2 - Related Data Allergies Allergy/AdvReac Type Severity Reaction Status Date / Time No Known Allergies Allergy Verified 12/27/20 19:18 Home Meds: Home Meds Sulfamethoxazole/Trimethoprim [Bactrim Ds Tablet] 01/03/21 [History] levoFLOXacin [Levaquin] 01/03/21 [History] Past Medical History - Past Health History Medical/Surgical History: Denies Medical/Surgical History HEENT History: Reports: None Cardiovascular History: Reports: None Other Cardiovascular History: irregular heartbeart as a child Respiratory History: Reports: None Gastrointestinal History: Reports: None Genitourinary History: Reports: None Musculoskeletal History: Reports: None Other Musculoskeletal History: L knee sx Neurological History: Reports: None Psychiatric History: Reports: None Endocrine/Metabolic History: Reports: None Insulin Pump Model and Rope Tow Operator: None Hematologic History: Reports: None Immunologic History: Reports: None Oncologic (Cancer) History: Reports: None Dermatologic History: Reports: None - Infectious Disease History Infectious Disease History: Reports: None - Past Surgical History Head Surgeries/Procedures: Reports: None Cardiovascular Surgical History: Reports: None Respiratory Surgical History: Reports: None Male Surgical History: Reports: None Musculoskeletal Surgical History: Reports: Other (See Below) Other Musculoskeletal Surgeries/Procedures:: Knee surgery Social & Family History - Family History Family Medical History: No Pertinent Family History - Caffeine Use Caffeine Use: Reports: Coffee, Energy Drinks, Soda Review of Systems - Review of Systems Review Of Systems: Comprehensive ROS is negative, except as noted in HPI. ED EXAM, GENERAL - Physical Exam Exam: See Below Exam Limited By: No Limitations General Appearance: Alert, WD/WN, No Apparent Distress Throat/Mouth: Normal Voice, No Airway Compromise Head: Atraumatic, Normocephalic Neck: Normal Inspection Respiratory/Chest: No Respiratory Distress, No Accessory Muscle Use Cardiovascular: Other (normal R dorsalis pedis pulse) Extremities: Other (swelling and TTP of R lateral malleolus, +TTP of anterior t ibia LLE) Neurological: Alert Psychiatric: Normal Affect, Normal Mood Skin Exam: Warm, Dry, Intact, Normal Color Course - Vital Signs Last Recorded V/S: Last Vital Signs Temp 98.5 F 01/03/21 21:39 Pulse 75 01/03/21 21:39 Resp 18 01/03/21 21:39 BP 127/75 01/03/21 21:39 Pulse Ox 98 01/03/21 21:39 - Orders/Labs/Meds Orders: Active Orders 24 hr Category Date Time Status Todd Bandage [RC] ONETIME Care 01/03/21 22:54 Ordered Meds: Medications Discontinued Medications Generic Name Dose Route Start Last Admin Trade Name Osiel PRN Reason Stop Dose Admin Ibuprofen 600 mg 01/03/21 21:39 01/03/21 21:51 Ibuprofen 600 Mg Tab PO 01/03/21 21:40 Not Given ONETIME ONE Oxycodone/Acetaminophen 1 tab 01/03/21 21:39 01/03/21 21:50 Acetaminophen/Oxycodone 325-5 Mg Tab PO 01/03/21 21:40 1 tab ONETIME ONE Administration - Re-Assessments/Exams Free Text/Narrative Re-Assessment/Exam: 01/03/21 21:41 We will get x-ray imaging of the affected ankle. Will give Percocet and Motrin for pain. We will follow up x-ray and disposition accordingly. 01/03/21 22:54 X-ray reveals moderate joint effusion without evidence of osseous injury. Will Todd wrap the affected extremity. Will give patient follow-up with orthopedics if symptoms do not resolve in the next several days for further work-up and assessment. Departure - Departure Time of Disposition: 22:55 Disposition: Home, Self-Care 01 Condition: Good Clinical Impression: Ankle sprain Qualifiers: Encounter type: initial encounter Involved ligament of ankle: unspecified ligament Laterality: right Qualified Code(s): S93.401A - Sprain of unspecified ligament of right ankle, initial encounter - Discharge Information Instructions: Ankle Sprain Referrals: PCP,None [Primary Care Provider] - Forms: ED Department Discharge Additional Instructions: Your x-ray does not reveal evidence of a fracture or dislocation. It appears that you have a bad ankle sprain. We have placed this in an Todd bandage that can help with stability of the ankle over the next several days. If your pain is not improving I would recommend that you follow-up with an orthopedic physician for further work-up. X-ray imaging can miss tears of ligaments in the ankle and these are sometimes (rarely) managed surgically. [facility][Note 3] [facility] [address] [place] [address], [address] [place] [address] The following information is given to patients seen in the emergency department who are being discharged to home. This information is to outline your options for follow-up care. We provide all patients seen in our emergency department with a follow-up referral. The need for follow-up, as well as the timing and circumstances, are variable depending upon the specifics of your emergency department visit. If you don't have a primary care physician on staff, we will provide you with a referral. We always advise you to contact your personal physician following an emergency department visit to inform them of the circumstance of the visit and for follow-up with them and/or the need for any referrals to a consulting specialist. The emergency department will also refer you to a specialist when appropriate. This referral assures that you have the opportunity for follow-up care with a specialist. All of these measure are taken in an effort to provide you with optimal care, which includes your follow-up. Under all circumstances we always encourage you to contact your private physician who remains a resource for coordinating your care. When calling for follow-up care, please make the office aware that this follow-up is from your recent emergency room visit. If for any reason you are refused follow-up, please contact the [facility] Emergency Department at and asked to speak to the emergency department charge nurse. Please follow up with your primary care physician. If you do not have a primary care physician, see below: [facility] [address] [place] [address] [id number] [facility] [address] [place], [place] [id number] [facility] [address] [place] [id number] Sepsis Event Note (ED) - Focused Exam Vital Signs: Vital Signs Temp Pulse Resp BP Pulse Ox 01/03/21 21:39 98.5 F 75 18 127/75 98 - My Orders Last 24 Hours: My Active Orders 01/03/21 22:54 Todd Bandage [RC] ONETIME - Assessment/Plan Last 24 Hours: My Active Orders 01/03/21 22:54 Todd Bandage [RC] ONETIME
[2021-01-03] MEDS ORDERED: Ibuprofen 600 MG Tab PO ONE (21:39)
[2021-01-03] MEDS ORDERED: Acetaminophen/oxyCODONE 325-5 MG Tab PO ONE (21:39)
--- NOTE | 2021-01-03 22:22 | CR ---
HISTORY: Rolled ankle with pain and swelling. COMPARISON: None available. FINDINGS: AP, lateral and oblique views of the right ankle were obtained for a total of three views. There is no sign of fracture or dislocation. The ankle mortise is intact. The talar dome is intact. There is a moderate diffuse joint effusion. There is moderate lateral soft tissue swelling and mild anterior swelling. There is no sign of soft tissue gas or foreign body. No degenerative disease is seen. IMPRESSION: No sign of acute osseous injury. Moderate lateral soft tissue swelling with moderate joint effusion. Dictated by Jose J Cedillo MD @ Jan 03 2021 10:18PM Signed by Dr. Jose J Cedillo @ Jan 03 2021 10:20PM
== END 2021-01-03 23:16 | disposition home or self-care (01) ==
LOC: MW.ED 21:31
DX: S93.401A Sprain of unspecified ligament of right ankle, initial encounter (principal); X50.9XXA Other and unspecified overexertion or strenuous movements or postures, initial encounter; Y99.0 Civilian activity done for income or pay
CPT/HCPCS: 73610; 99283; A9270; 99282

== ENCOUNTER 2022-03-13 01:33 | Emergency (ER) | payer OTHER | END 2022-03-13 02:22 | disposition home or self-care (01) | LOC: MW.ED 01:33 | DX: K64.9 Unspecified hemorrhoids (principal) | CPT/HCPCS: 99283 ==

== ENCOUNTER 2023-01-30 23:57 | Emergency (ER) | payer BC, OTHER ==
[2023-01-31] MEDS ORDERED: Acetaminophen 500 MG Tab PO ONE (00:27)
[2023-01-31] MEDS ORDERED: Ibuprofen 400 MG Tab PO ONE (00:27)
== END 2023-01-31 01:21 | disposition home or self-care (01) ==
LOC: MW.ED 23:57
DX: S62.633A Displaced fracture of distal phalanx of left middle finger, initial encounter for closed fracture (principal); S62.635A Displaced fracture of distal phalanx of left ring finger, initial encounter for closed fracture; S62.637A Displaced fracture of distal phalanx of left little finger, initial encounter for closed fracture; W23.1XXA Caught, crushed, jammed, or pinched between stationary objects, initial encounter; Y99.0 Civilian activity done for income or pay
CPT/HCPCS: 73130; 99283; A9270; 99282

== ENCOUNTER 2024-01-19 16:01 | Emergency (ER) | payer SELFPAY ==
[2024-01-19 16:27] LABS: BASOPHILS PERCENT AUTO 0.9 % (0.0-1.0); EOSINOPHILS ABSOLUTE AUTO 0.77 K/uL (0.00-0.45); EOSINOPHILS PERCENT AUTO 6.6 % (0.0-6.0); HEMATOCRIT 44.2 % (42.0-52.0); HEMOGLOBIN 15.7 g/dL (14.0-18.0); IMMATURE GRAN ABSOLUTE AUTO 0.18 K/uL (0.00-0.05); IMMATURE GRAN PERCENT AUTO 1.5 % (0.0-0.4); LYMPHOCYTES PERCENT AUTO 16.3 % (24.0-44.0); MEAN CORPUSCULAR HEMOGLOBIN 30.9 pg (28.0-32.0); MEAN CORPUSCULAR HGB CONC 35.5 g/dL (32.0-36.0); MEAN PLATELET VOLUME 9.4 fL (9.4-12.4); MONOCYTES ABSOLUTE AUTO 1.34 K/uL (0.00-0.80); MONOCYTES PERCENT AUTO 11.5 % (0.0-8.0); NEUTROPHILS ABSOLUTE AUTO 7.34 K/uL (1.80-7.70); NEUTROPHILS PERCENT AUTO 63.2 % (41.0-71.0); PLATELET COUNT,PLT 399 K/uL (150-400); RED BLOOD CELL COUNT 5.08 M/uL (4.52-5.90); WHITE BLOOD CELL COUNT,WBC 11.63 K/uL (3.9-11.3)
[2024-01-19 16:43] LABS: INR < 0.93 (0.86-1.11); PTT,PARTIAL THROMBOPLSTIN TIME 31.3 SEC (23.9-30.7)
[2024-01-19 16:56] LABS: A/G RATIO 1.1 (0.9-1.6); ALANINE AMINOTRANSFERASE,ALT 53 IU/L (14-63); ALBUMIN 4.1 g/dL (3.4-5.0); ALKALINE PHOSPHATASE 175 U/L (46-116); ASPARTATE AMNIOTRANSFERASE,AST 27 IU/L (15-37); BILIRUBIN TOTAL 0.3 mg/dL (0.2-1.0); BLOOD UREA NITROGEN,BUN 21 mg/dL (7.0-18.0); CALCIUM 9.3 mg/dL (8.5-10.1); CHLORIDE,CL 104 mmol/L (98-107); CREATININE 0.9 mg/dL (0.8-1.3); GLUCOSE RANDOM 92 mg/dL (74-106); PROTEIN TOTAL,TP 7.9 g/dL (6.4-8.2); SODIUM,NA 140 mmol/L (136-148)
[2024-01-19 17:03] LABS: ESTIMATED GFR 115 mL/min (>60)
== END 2024-01-19 19:06 | disposition home or self-care (01) ==
LOC: MW.ED 16:01
DX: R07.2 Precordial pain (principal); Z79.899 Other long term (current) drug therapy; Z91.011 Allergy to milk products; Z75.8 Other problems related to medical facilities and other health care
CPT/HCPCS: 36415; 71046; 71046-26; 80053; 84484; 85025; 85610; 85730; 93005; 93010; 99282; 99285

== ENCOUNTER 2024-12-21 20:30 | Observation (INO) | payer OTHER ==
[2024-12-21] MEDS: Sodium Chloride 0.9% 1,000 ML IV ONE (20:44)
[2024-12-21 20:49] LABS: HEMATOCRIT 42.8 % (42.0-52.0); HEMOGLOBIN 14.6 g/dL (14.0-18.0); MEAN CORPUSCULAR HEMOGLOBIN 29.6 pg (28.0-32.0); MEAN CORPUSCULAR HGB CONC 34.1 g/dL (32.0-36.0); MEAN CORPUSCULAR VOLUME 86.8 fL (83.0-99.0); MEAN PLATELET VOLUME 9.4 fL (9.4-12.4); PLATELET COUNT,PLT 413 K/uL (150-400); RED BLOOD CELL COUNT 4.93 M/uL (4.52-5.90); WHITE BLOOD CELL COUNT,WBC 26.11 K/uL (3.9-11.3)
[2024-12-21] MEDS: Morphine 4 MG/ML Syringe IVPUSH ONE (20:51)
[2024-12-21] MEDS: Ondansetron 4 MG/2 ML SDV IVPUSH ONE (20:51)
[2024-12-21 21:09] LABS: EOSINOPHILS ABSOLUTE MAN 1.31 K/uL (0.00-0.45); EOSINOPHILS PERCENT MAN 5 % (0-6); LYMPHOCYTES ABSOLUTE MAN 4.44 K/uL (1.00-4.80); LYMPHOCYTES PERCENT MAN 17 % (24-44); MONOCYTES ABSOLUTE MAN 1.31 K/uL (0.00-0.80); MONOCYTES PERCENT MAN 5 % (0-8); SEG NEUTROPHILS ABSOLUTE MAN 19.06 K/uL (1.80-7.70); SEG NEUTROPHILS PERCENT MAN 73 % (41-71)
[2024-12-21] MEDS: Iopamidol 755 MG/ML 500 ML Multipack Bottle IVPUSH ONE (21:10)
[2024-12-21 21:14] LABS: A/G RATIO 1.1 (0.9-1.6); ALBUMIN 4.1 g/dL (3.4-5.0); BILIRUBIN TOTAL 0.3 mg/dL (0.2-1.0); CREATININE 0.9 mg/dL (0.8-1.3); EST CRCL DRUG DOSING (CG) 129.47 mL/min; POTASSIUM,K 3.6 mmol/L (3.5-5.1); PROTEIN TOTAL,TP 7.8 g/dL (6.4-8.2)
[2024-12-21] MEDS: Piperacillin/Tazobactam 4.5 GM in Sodium Chloride 0.9% 100 ML IV ONE (22:00)
[2024-12-21 22:05] LABS: APPEARANCE,URINE CLEAR; BILIRUBIN,URINE NEGATIVE (NEGATIVE); COLOR,URINE YELLOW; GLUCOSE,URINE NEGATIVE (NEGATIVE); KETONES,URINE 15 mg/dL (NEGATIVE); LEUKOCYTE ESTERASE,URINE NEGATIVE (NEGATIVE); NITRITE,URINE NEGATIVE (NEGATIVE); OCCULT BLOOD,URINE NEGATIVE (NEGATIVE); PH,URINE 5.5 (5.0-8.0); PROTEIN,URINE NEGATIVE (NEGATIVE)
[2024-12-21] MEDS ORDERED: Naloxone 0.4 MG/ML SDV IVPUSH PRN (22:19)
[2024-12-21] MEDS ORDERED: Ondansetron 4 MG/2 ML SDV IVPUSH PRN (22:20)
[2024-12-21] MEDS ORDERED: Ketorolac 30 MG/ML SDV IVPUSH PRN (22:20)
[2024-12-21] MEDS ORDERED: Acetaminophen 325 MG Tab PO PRN (22:22)
[2024-12-21] MEDS: HYDROmorphone 0.5 MG/0.5 ML Syringe IVPUSH PRN (22:40)
[2024-12-21] MEDS: Lactated Ringers 1,000 ML IV SCH (22:42)
[2024-12-22] MEDS: Piperacillin/Tazobactam 4.5 GM in Sodium Chloride 0.9% 100 ML IV ONE (05:09)
[2024-12-22 06:03] LABS: BASOPHILS ABSOLUTE AUTO 0.06 K/uL (0.00-0.20); BASOPHILS PERCENT AUTO 0.3 % (0.0-1.0); EOSINOPHILS ABSOLUTE AUTO 0.38 K/uL (0.00-0.45); HEMATOCRIT 39.7 % (42.0-52.0); HEMOGLOBIN 13.6 g/dL (14.0-18.0); IMMATURE GRAN ABSOLUTE AUTO 0.11 K/uL (0.00-0.05); IMMATURE GRAN PERCENT AUTO 0.6 % (0.0-0.4); LYMPHOCYTES ABSOLUTE AUTO 2.43 K/uL (1.00-4.80); MEAN CORPUSCULAR HEMOGLOBIN 30.2 pg (28.0-32.0); MEAN CORPUSCULAR HGB CONC 34.3 g/dL (32.0-36.0); MEAN PLATELET VOLUME 9.9 fL (9.4-12.4); MONOCYTES ABSOLUTE AUTO 1.96 K/uL (0.00-0.80); MONOCYTES PERCENT AUTO 10.5 % (0.0-8.0); NEUTROPHILS ABSOLUTE AUTO 13.81 K/uL (1.80-7.70); NEUTROPHILS PERCENT AUTO 73.6 % (41.0-71.0); PLATELET COUNT,PLT 390 K/uL (150-400); RED BLOOD CELL COUNT 4.51 M/uL (4.52-5.90); WHITE BLOOD CELL COUNT,WBC 18.75 K/uL (3.9-11.3)
[2024-12-22] MEDS ORDERED: Bupivacaine 0.5% 30 ML SDV ONE (08:00)
[2024-12-22] MEDS ORDERED: Albuterol 0.083% 2.5 MG/3 ML Neb Soln NEB PRN (08:11)
[2024-12-22] MEDS ORDERED: Naloxone 0.4 MG/ML SDV IVPUSH PRN (08:11)
[2024-12-22] MEDS ORDERED: Phenylephrine HCl In 0.9% NaCl 1 MG/10 ML Syringe IVPUSH PRN (08:11)
[2024-12-22] MEDS ORDERED: Metoclopramide 10 MG/2 ML SDV IVPUSH PRN (08:11)
[2024-12-22] MEDS ORDERED: Morphine 2 MG/ML SYRINGE IVPUSH PRN (08:11)
[2024-12-22] MEDS ORDERED: Ondansetron 4 MG/2 ML SDV IVPUSH PRN (08:11)
[2024-12-22] MEDS ORDERED: HYDROmorphone 1 MG/ML Syringe IVPUSH PRN (08:11)
[2024-12-22] MEDS ORDERED: fentaNYL 50 MCG/ML SDV IVPUSH PRN (08:11)
[2024-12-22] MEDS ORDERED: Propofol 200 MG/20 ML SDV ONE (08:14)
[2024-12-22] MEDS ORDERED: fentaNYL 250 MCG/5 ML SDV ONE ×2 (08:14→08:56)
[2024-12-22] MEDS ORDERED: dexmedeTOMIDine HCl 200 MCG/2 ML SDV ONE (08:16)
[2024-12-22] MEDS ORDERED: Sodium Chloride 0.9% 20 ML ONE ×2 (08:16→08:19)
[2024-12-22] MEDS ORDERED: Ropivacaine 0.5% 5 MG/ML 30 ML SDV ONE (08:17)
[2024-12-22] MEDS ORDERED: Morphine 10 MG/ML SDV ONE (08:18)
[2024-12-22] MEDS ORDERED: Lidocaine 2% 11 ML Jelly Filled Syringe ONE (08:35)
[2024-12-22] MEDS ORDERED: Rocuronium Bromide 50 MG/5 ML Syringe ONE (08:35)
[2024-12-22] MEDS ORDERED: Ketamine HCL/NACL, ISO-OSM 50 MG/5 ML Syringe ONE (08:52)
[2024-12-22] MEDS ORDERED: Sugammadex Sodium 200 MG/2 ML VIAL IV ONE (09:26)
[2024-12-22] MEDS ORDERED: Ondansetron 4 MG/2 ML SDV ONE (09:26)
[2024-12-22] MEDS ORDERED: Ketorolac 30 MG/ML SDV ONE (09:26)
[2024-12-22] MEDS ORDERED: Dexamethasone 4 MG/ML 5 ML MDV ONE (09:26)
[2024-12-22] MEDS: Nicotine 14 MG/24 Hr Patch TRDERM SCH (11:00)
[2024-12-22] MEDS: Piperacillin/Tazobactam 4.5 GM in Sodium Chloride 0.9% 100 ML IV SCH (14:27)
[2024-12-22] MEDS: Acetaminophen/oxyCODONE 325-5 MG Tab PO PRN (17:23)
[2024-12-23 06:07] LABS: HEMATOCRIT 37.5 % (42.0-52.0); HEMOGLOBIN 12.7 g/dL (14.0-18.0); MEAN CORPUSCULAR HEMOGLOBIN 30.2 pg (28.0-32.0); MEAN CORPUSCULAR HGB CONC 33.9 g/dL (32.0-36.0); MEAN CORPUSCULAR VOLUME 89.1 fL (83.0-99.0); MEAN PLATELET VOLUME 9.6 fL (9.4-12.4); PLATELET COUNT,PLT 361 K/uL (150-400); RED BLOOD CELL COUNT 4.21 M/uL (4.52-5.90); WHITE BLOOD CELL COUNT,WBC 15.76 K/uL (3.9-11.3)
[2024-12-23 07:10] LABS: EOSINOPHILS ABSOLUTE MAN 0.16 K/uL (0.00-0.45); EOSINOPHILS PERCENT MAN 1 % (0-6); LYMPHOCYTES ABSOLUTE MAN 3.94 K/uL (1.00-4.80); LYMPHOCYTES PERCENT MAN 25 % (24-44); MONOCYTES ABSOLUTE MAN 1.42 K/uL (0.00-0.80); MONOCYTES PERCENT MAN 9 % (0-8); SEG NEUTROPHILS ABSOLUTE MAN 10.24 K/uL (1.80-7.70); SEG NEUTROPHILS PERCENT MAN 65 % (41-71)
== END 2024-12-23 11:25 | disposition home or self-care (01) ==
LOC: MW.ED 20:30 → MW.SDS 22:04 → MW.MS 22:05 → MW.SDS 12-22 09:55 → MW.MS 12-22 09:55
PROVIDERS: ADMIT Surgery; ATTEND Surgery
DX: K35.30 Acute appendicitis with localized peritonitis, without perforation or gangrene (principal); J44.9 Chronic obstructive pulmonary disease, unspecified; K63.9 Disease of intestine, unspecified; F17.210 Nicotine dependence, cigarettes, uncomplicated; Z79.899 Other long term (current) drug therapy
CPT/HCPCS: 36415; 44970; 64486; 74177; 80053; 81003; 83690; 85025; 96361; 96365; 96366; 96375; 96376; 99285; A9270; G0378; J0131; J0665; J1100; J1885; J2270; J2272; J2405; J2543; J2704; J2795; J3010; J3490; J7030; J7120; Q9967; 00840; 96374; 99284

== ENCOUNTER 2025-02-21 12:18 | Emergency (ER) | payer OTHER ==
[2025-02-21] MEDS: Lidocaine 1% 5 ML VIAL INJECT ONE (14:15)
[2025-02-21] MEDS: Lidocaine/Epineph/Tetracaine 3 ML Syringe TOP ONE (14:17)
== END 2025-02-21 15:30 | disposition home or self-care (01) ==
LOC: MW.ED 12:18
DX: S01.21XA Laceration without foreign body of nose, initial encounter (principal); Z79.899 Other long term (current) drug therapy; Z91.011 Allergy to milk products; W27.0XXA Contact with workbench tool, initial encounter
CPT/HCPCS: 12013; 70486; 99283; A9270; J2003